=== PATIENT | female | born 1980 | race African-American/Black ===

== ENCOUNTER 2019-11-13 05:08 | Day surgery (SDC) | payer OTHER ==
[2019-11-09 10:25] VITALS: BMI 36.2
[2019-11-13] MEDS ORDERED: EPHEDRINE SULFATE/0.9% NACL/PF 50 MG/10 ML SYRINGE NR ONE (07:23)
[2019-11-13] MEDS ORDERED: SUCCINYLCHOLINE CHLORIDE 200 MG/10 ML SYRINGE ONE (07:24)
[2019-11-13] MEDS ORDERED: PROPOFOL 20 ML ONE ×4 (07:24→08:42)
[2019-11-13] MEDS ORDERED: MIDAZOLAM HCL 2 MG/2 ML SINGLE DOSE VIAL ONE (07:24)
[2019-11-13] MEDS ORDERED: METRONIDAZOLE 500 MG IVPB ONE (07:42)
[2019-11-13] MEDS ORDERED: PREMIXED IVPB ONE (07:42)
--- NOTE | 2019-11-13 08:13 | HP ---
Admitting History and Physical - Primary Care Physician PCP: Che Adhikari - Admission Chief Complaint: 39yo P1 with heavy menses, anemia, fibroid uterus, recieving iron transfusion History of Present Illness: Anemia requiring iron transfusion fibroid uterus History Source: Patient Limitations to Obtaining History: No Limitations - Past Medical History ...LMP: 11/01/19 ...: No Heme/Onc: Yes: Anemia (Recieving iron transfusions) - Past Surgical History Past Surgical History: Yes: (x2) - Smoking History Smoking history: Never smoked Have you smoked in the past 12 months: No - Alcohol/Substance Use Hx Alcohol Use: No History of Substance Use: reports: None - Social History History of Recent Travel: No Home Medications - Allergies Allergies/Adverse Reactions: Allergies Allergy/AdvReac Type Severity Reaction Status Date / Time No Known Allergies Allergy Verified 11/13/19 07:07 - Home Medications Home Medications: Ambulatory Orders Iron Infusion 1 unit IV ASDIR 11/09/19 Multivitamin [Multiple Vitamins] 1 each PO DAILY 11/09/19 Norethindrone 0.35 mg PO HS 11/09/19 Review of Systems - Review of Systems Constitutional: reports: No Symptoms Eyes: reports: No Symptoms HENT: reports: No Symptoms Neck: reports: No Symptoms Cardiovascular: reports: No Symptoms Respiratory: reports: No Symptoms Gastrointestinal: reports: No Symptoms Genitourinary: reports: Other (heavy, protracted menses) Breasts: reports: No Symptoms Reported Musculoskeletal: reports: No Symptoms Integumentary: reports: No Symptoms Neurological: reports: No Symptoms Endocrine: reports: No Symptoms Hematology/Lymphatic: reports: Excessive Bleeding Psychiatric: reports: No Symptoms Physical Examination Vital Signs: Vital Signs Temperature 96.6 F L 11/13/19 07:01 Pulse Rate 79 11/13/19 07:01 Respiratory Rate 18 11/13/19 07:01 Blood Pressure 112/68 11/13/19 07:01 O2 Sat by Pulse Oximetry (%) Constitutional: Yes: Well Nourished, No Distress, Calm Eyes: Yes: WNL HENT: Yes: WNL Neck: Yes: WNL Cardiovascular: Yes: WNL Respiratory: Yes: WNL Gastrointestinal: Yes: WNL Musculoskeletal: Yes: WNL Extremities: Yes: WNL Edema: No Integumentary: Yes: WNL Neurological: Yes: WNL, Alert, Oriented ...Motor Strength: WNL Assessment/Plan 39yo P1 with fibroid uterus, heavy, protracted menses, anemia For Hysteroscopy, myomectomy, D&C
--- NOTE | 2019-11-13 08:19 | OP ---
Operative Note - Note: Operative Date: 11/13/19 Pre-Operative Diagnosis: 39yo P2 with multifibroid uterus, prolonged menses anemia Operation: Hysteroscopy/Myomectomy/Polypectomy/D&C Findings: 14wk fibroid uterus Overgrown, white endometrium Endometrial polyps and submucosal fibroids Post-Operative Diagnosis: Same as Pre-op Surgeon: Che Adhikari Anesthesiologist/INTERNAL CONTROL CONSULTANT: Harley Pineda Anesthesia: MAC Specimens Removed: Fibroid. Polyp. Endometrial curettings Estimated Blood Loss (mls): 5 Instrument used (Debridements only): Symphion Hysteroscope with resectoscope Drains & Tubes with Location: Fluid defficit 0cc Drains, Volume Out (mls): 30 Fluid Volume Replaced (mls): 600 Operative Report Dictated: Yes
[2019-11-13] MEDS ORDERED: ONDANSETRON 4 MG/2 ML VIAL IVPUSH PRN ×2 (09:07→09:40)
[2019-11-13] MEDS ORDERED: oxyCODONE HCL 5 MG TABLET PO PRN ×3 (09:07→09:40)
[2019-11-13] MEDS ORDERED: LACTATED RINGERS SOLUTION 1,000 ML IV SCH (09:15)
[2019-11-13] MEDS ORDERED: LIDOCAINE HCL/PF 2% SDV 5ML VIAL ONE (09:20)
[2019-11-13] MEDS ORDERED: DEXAMETHASONE SOD PHOSPHATE 4 MG/1 ML VIAL ONE (09:20)
[2019-11-13] MEDS ORDERED: KETOROLAC TROMETHAMINE 30 MG/1 ML VIAL ONE (09:20)
[2019-11-13] MEDS ORDERED: IBUPROFEN 600 MG TABLET (FP) PO PRN (09:40)
[2019-11-13] MEDS ORDERED: IBUPROFEN 800 MG/8 ML IJ IVPB PRN (09:40)
[2019-11-13] MEDS ORDERED: ELECTROLYTE-148 SOLN 1,000 ML IV SCH (09:45)
--- NOTE | 2019-11-13 13:30 | OP ---
DATE OF OPERATION: PREOPERATIVE DIAGNOSIS: [age] years old, para 2, with multifibroid uterus, prolonged menses, and anemia. OPERATION: Hysteroscopy, myomectomy, polypectomy, dilation and curettage. FINDINGS: Fourteen-week fibroid uterus, overgrown white endometrium, endometrial polyps and submucosal fibroids. POSTOPERATIVE DIAGNOSIS: [age] years old, para 2, with multifibroid uterus, prolonged menses, and anemia. SURGEON: Sandy Gonsalez MD ANESTHESIOLOGIST: Harley Pineda MD ANESTHESIA: MAC. SPECIMENS REMOVED: Fibroid, polyp, endometrial curettings. INSTRUMENTS USED: Symphion hysteroscope with resectoscope. DESCRIPTION OF THE OPERATIVE PROCEDURE: After assuring informed consent, patient was brought to the operating room where she was placed in dorsal lithotomy position. Vagina and perineum were prepped and draped in sterile fashion. The cervix was found to be very anterior and difficult to visualize, so posterior cervical lip was articulated with single-tooth tenaculum, and cervix was dilated with gradually increasing in size dilators to accommodate the 6.3-mm Symphion hysteroscope which was introduced into the cavity after it was primed and white balanced without any difficulty. Above findings were noted. Resectoscope was introduced through the operative port, and fibroids, polyps, and endometrium were resected. Excellent hemostasis was assured. Subsequently, all instruments were removed from the uterus, cervix, and vagina. Sponge and instrument count was correct x2. Estimated blood loss was 5 mL. Fluid deficit was 0. Approximately a lot of fluid went on the floor and drapes. Patient drained 30 mL of urine prior to the procedure and received 600 mL of IV fluids. SANDY GONSALEZ M.D. [id number]
[2019-11-13 13:31] VITALS: BP 110/63; PULSE 90; TEMP 97.7
--- NOTE | 2019-11-14 16:47 | PATH ---
Surgical Pathology Report Patient Name: ANTONY MALDONADO [place]. Rec. #: [id number] /Age/Gender: 1980 (Age: 39) / F Account: [id number] Location: [facility] Taken: 11/13/2019 Received: 11/13/2019 Reported: 11/14/2019 Physicians: Che Adhikari M.D. Specimen(s) Received ENDOMETRIAL POLYP, ENDOMETRIAL CURETTINGS, AND FIBROID Clinical History Fibroid uterus, frequent menstruation, anemia, rule out endometrial hyperplasia Final Diagnosis ENDOMETRIAL POLYP, ENDOMETRIAL CURETTINGS, AND FIBROID, DILATION AND CURETTAGE: FRAGMENTS OF ENDOMETRIAL POLYP, SECRETORY ENDOMETRIUM, SCANT BENIGN ENDOCERVICAL TISSUE, AND FIBROMUSCULAR TISSUE CONSISTENT WITH SUBMUCOSAL LEIOMYOMA. Electronically Signed Gema Rodriguez M.D. Gross Description Received in formalin labeled "endometrial polyp, endometrial curetting and fibroid," is a 5.5 x 4.0 x 0.5 cm aggregate of garnica soft tissue fragments. The formalin is filtered and the specimen is entirely submitted in 5 cassettes. /11/13/2019 saudi/11/13/2019
== END 2019-11-13 13:31 | disposition home or self-care (01) ==
LOC: JASU-SURG 05:08
PROVIDERS: ATTEND Obstetrics & Gynecology
PROC: 0UDB8ZX Extraction of Endometrium, Via Natural or Artificial Opening Endoscopic, Diagnostic (ICD-10-PCS; 2019-11-13)
PROC: 0UB98ZZ Excision of Uterus, Via Natural or Artificial Opening Endoscopic (ICD-10-PCS; principal; 2019-11-13 07:30)
PROC: 0UB98ZX Excision of Uterus, Via Natural or Artificial Opening Endoscopic, Diagnostic (ICD-10-PCS; 2019-11-13 07:30)
DX: D25.0 Submucous leiomyoma of uterus (principal); N84.0 Polyp of corpus uteri; N92.0 Excessive and frequent menstruation with regular cycle; N85.00 Endometrial hyperplasia, unspecified
CPT/HCPCS: 71046-TC-FY; 84703; 88305-TC; 94760